=== PATIENT | female | born 1965 | race Caucasian/White ===

== ENCOUNTER 2019-01-08 08:00 | Day surgery (SDC) | payer OTHER ==
[~2019-01-08] VITALS: Ht 160 cm; Wt 103.6 kg
[~2019-01-08 08:00] MED LIST: 0.9% SODIUM CHLORIDE 10 ML SYRINGE IVP PRN; ALBU8.5H8 IH; LORA10TA7 PO; METOPROLOL TARTRATE 50 MG TABLET PO PRN; MULT1CAP32 PO; OMEP20CA10 PO
[2019-01-08 09:07] LABS: ANION GAP 7 mmol/L (8-16); CALCIUM, TOTAL 8.7 mg/dL (8.8-10.5); CARBON DIOXIDE 28 mmol/L (22-29); CHLORIDE 106 mmol/L (98-107); CREATININE 0.85 mg/dL (0.60-1.30); GLOMERULAR FILTR. RATE CALC > 60 mL/min (>60); GLUCOSE,RANDOM 113 mg/dL (70-110); POTASSIUM 4.1 mmol/L (3.5-5.1); SODIUM SERUM 141 mmol/L (136-145); UREA NITROGEN, BLOOD 15 mg/dL (7-18)
[2019-01-08] MEDS ORDERED: METOPROLOL TARTRATE 5 MG/5 ML VIAL ONE (10:13)
[2019-01-08] MEDS ORDERED: NITROGLYCERIN 400 MCG/SUBLINGUAL SPRAY 4.9 GM BOTTLE SL ONE ×2 (10:13→10:30)
[2019-01-08] MEDS ORDERED: IOVERSOL 350 MG/ML 150 ML VIAL ONE (10:13)
[2019-01-08] MEDS ORDERED: SODIUM CHLORIDE 0.9% 100 ML ONE (10:13)
[2019-01-08] MEDS ORDERED: METOPROLOL TARTRATE 5 MG/5 ML VIAL IVP ONE (10:23)
== END 2019-01-08 11:35 | disposition home or self-care (01) ==
LOC: SURGERY 08:00 → EDSTATUS 10:00 → SURGERY 11:35
PROVIDERS: ATTEND Internal Medicine Cardiovascular Disease
DX: I20.9 Angina pectoris, unspecified (principal); K44.9 Diaphragmatic hernia without obstruction or gangrene; J45.909 Unspecified asthma, uncomplicated; Z98.890 Other specified postprocedural states
CPT/HCPCS: 36415; 75574; 80048; 93005; J3490; J7050; Q9967